=== PATIENT | male | born 1940 | race African-American/Black ===

== ENCOUNTER 2020-06-04 00:21 | Inpatient (IN) | payer OTHER ==
[~2020-06-04] VITALS: Ht 182.9 cm; Wt 78.0 kg
[~2020-06-04 00:21] MED LIST: ACET1TAB14 PO; AMIT100T2 PO; AMLO2.5T45 PO; ASPI-1497 PO; ATOR40TA70 PO; FLUP10TA13 PO; VIAG50 PO
[2020-06-04] MEDS ORDERED: ACETAMINOPHEN 325MG TABLET PO PRN (09:45)
[2020-06-04] MEDS ORDERED: ONDANSETRON HCL 4MG/2ML INJ IV PRN (09:45)
[2020-06-04] MEDS: AMLODIPINE 10MG TABLET PO SCH (11:30)
[2020-06-04] MEDS ORDERED: LORAZEPAM 2MG/ML CPJ IV PRN (17:15)
[2020-06-04 17:33] LABS: BG BASE EXCESS 5.2 mmol/L (-2.0-2.0); BG CARBOXYHEMOGLOBIN 0.6 % (0.5-1.5); BG DEOXYHEMOGLOBIN 6.8 % (0.0-5.0); BG HCO3 ACT 30.6 mmol/L (22.0-26.0); BG METHEMOGLOBIN 0.2 % (0.0-1.5); BG OXYGEN SATURATION 93.1 % (92.0-98.5); BG OXYHEMOGLOBIN 92.4 % (94.0-97.0); BG PCO2 47.2 mmHg (35.0-45.0); BG PH 7.429 (7.350-7.450); BG PO2 63.3 mmHg (75.0-100.0); BG SAMPLE SITE RIGHT RADIAL; BG TOTAL HEMOGLOBIN 14.4 g/dL (12.0-18.0); BG VENT MODE ROOM AIR
[2020-06-04] MEDS ORDERED: FOLIC ACID 1 MG, THIAMINE HCL 100 MG, MVI, ADULT NO.1 10 ML in DEXTROSE 5% WATER 1,000 ML IV SCH ×4 (18:00)
[2020-06-04] MEDS: LEVETIRACETAM 500MG TABLET PO SCH (21:51)
[2020-06-05] MEDS: AMLODIPINE 10MG TABLET PO SCH (09:00)
[2020-06-05] MEDS: LEVETIRACETAM 500MG TABLET PO SCH (09:00)
[2020-06-05 10:13] LABS: BASOPHILS % 0.3 % (0.0-2.0); EOSINOPHILS % 2.9 % (0.0-5.0); HEMATOCRIT. 37.8 % (42.0-52.0); HEMOGLOBIN. 13.2 g/dL (14.0-18.0); LYMPHOCYTES % 15.1 % (20.0-50.0); MEAN CORPUSCULAR HEMOGLOBIN 28.7 pg (28.0-32.0); MEAN CORPUSCULAR VOLUME 82.4 fL (80.0-94.0); MEAN PLATELET VOLUME 8.1 fl (7.4-10.4); MONOCYTES % 10.5 % (2.0-8.0); NEUTROPHILS % 71.2 % (40.0-76.0); PLATELET 172 x1000/uL (130-400); RED BLOOD CELL COUNT 4.59 mill/uL (4.7-6.1); RED CELL DISTRIBUTION WIDTH 14.6 % (11.6-14.6)
[2020-06-05 10:14] LABS: CHLORIDE 99 mEq/L (98-107)
[2020-06-06 04:00] VITALS: BP 137/80
[2020-06-06] MEDS ORDERED: ONDANSETRON HCL 4MG/2ML INJ IV PRN (04:30)
[2020-06-06] MEDS ORDERED: LORAZEPAM 2MG/ML CPJ IV PRN (04:30)
[2020-06-06 05:20] VITALS: BP 111/86
[2020-06-06] MEDS: DEXT 5%/0.45% NACL KCL 20MEQ/L 1,000 ML IV SCH ×3 (07:00→18:24)
[2020-06-06 08:00] VITALS: BP 123/68
[2020-06-06] MEDS ORDERED: PANTOPRAZOLE SODIUM 40 MG/VIAL IV SCH (09:00)
[2020-06-06] MEDS: AMLODIPINE 10MG TABLET PO SCH (09:00)
[2020-06-06] MEDS: LEVETIRACETAM 500MG TABLET PO SCH (09:00)
[2020-06-06 12:00] VITALS: BP 129/72
[2020-06-06 16:00] VITALS: BP 132/73
[2020-06-06 19:13] VITALS: BP 132/73
== END 2020-06-06 20:00 | disposition home or self-care (01) | DRG 918 ==
LOC: ER 00:21 → MICUSO 01:28 → EDBEDREQSVC 13:22 → 6WST 06-05 21:58
PROVIDERS: ADMIT Internal Medicine; ATTEND Internal Medicine
DX: T65.91XA Toxic effect of unspecified substance, accidental (unintentional), initial encounter (principal); G40.909 Epilepsy, unspecified, not intractable, without status epilepticus; F03.90 Unspecified dementia, unspecified severity, without behavioral disturbance, psychotic disturbance, mood disturbance, and anxiety; I10 Essential (primary) hypertension; Z86.73 Personal history of transient ischemic attack (TIA), and cerebral infarction without residual deficits; Z79.82 Long term (current) use of aspirin; Z79.899 Other long term (current) drug therapy; Y92.89 Other specified places as the place of occurrence of the external cause
CPT/HCPCS: 36415; 36600; 80048; 82375; 82805; 85025; 93005; 99291; C9113; J2060; J3411; J3490; J7070

== ENCOUNTER 2023-07-29 02:08 | Emergency (ER) | payer OTHER ==
[~2023-07-29] VITALS: Ht 177.8 cm; Wt 53.0 kg
[2023-07-29 02:14] VITALS: TEMP 98.1
[2023-07-29 03:10] VITALS: PULSE 68; RESP 16; O2SAT 99
[2023-07-29] MEDS: ALBUTEROL (0.083%) 2.5MG/3ML NEB HHN STA (03:10)
[2023-07-29] MEDS: IPRATROPIUM BROMIDE (0.02%) 0.5MG/2.5ML NEB HHN STA (03:10)
[2023-07-29] MEDS: METHYLPREDNISOLONE SOD SUCC 125MG/2ML (ACT-O-VIAL) IV STA (03:17)
[2023-07-29 03:34] VITALS: BP 158/79; PULSE 73; RESP 18
[2023-07-29 03:43] LABS: BASOPHILS % 0.5 % (0.0-2.0); EOSINOPHILS % 2.8 % (0.0-5.0); HEMATOCRIT. 34.7 % (42.0-52.0); HEMOGLOBIN. 11.6 g/dL (14.0-18.0); LYMPHOCYTES % 31.1 % (20.0-50.0); MEAN CORPUSCULAR HEMOGLOBIN 27.8 pg (28.0-32.0); MEAN CORPUSCULAR HGB CONC 33.3 g/dL (31.0-37.0); MEAN CORPUSCULAR VOLUME 83.4 fL (80.0-94.0); MONOCYTES % 13.6 % (2.0-8.0); PLATELET 195 x1000/uL (130-400); RED BLOOD CELL COUNT 4.16 mill/uL (4.7-6.1); RED CELL DISTRIBUTION WIDTH 19.3 % (11.6-14.6); WHITE BLOOD COUNT 3.6 x1000/uL (4.5-11.0)
[2023-07-29 03:56] LABS: ALANINE AMINOTRANSFERASE 23 IU/L (10-49); ALBUMIN 3.8 g/dL (3.2-4.8); ASPARTATE AMINOTRANSFERASE 29 IU/L (<34); CALCIUM 9.1 mg/dL (8.7-10.4); CARBON DIOXIDE 34 mEq/L (21-32); CHLORIDE 106 mEq/L (98-107); CREATININE 0.7 mg/dL (0.6-1.3); GLUCOSE 103 mg/dL (70-105); POTASSIUM 2.9 mEq/L (3.5-5.1); PROTEIN TOTAL 6.3 g/dL (6.0-8.3); SODIUM 146 mEq/L (136-145); UREA NITROGEN BLOOD 13 mg/dL (9-23)
[2023-07-29 04:05] LABS: TROPONIN I HIGH SENSITIVITY 75 ng/L (3.0-53)
[2023-07-29] MEDS: ASPIRIN 81MG TABLET PO ONE (05:34)
[2023-07-29] MEDS: POTASSIUM CHLORIDE 20MEQ TABLET SR PO ONE (05:35)
== END 2023-07-29 07:30 | disposition short-term general hospital (02) ==
LOC: ER 02:40
DX: I21.3 ST elevation (STEMI) myocardial infarction of unspecified site (principal); I10 Essential (primary) hypertension; E11.9 Type 2 diabetes mellitus without complications; Z79.899 Other long term (current) drug therapy; Z98.890 Other specified postprocedural states; Z79.82 Long term (current) use of aspirin
CPT/HCPCS: 99291; 96374; 80053; 83880; 85025; 84484; 36415; 71045; 94640; 93005; J2930